=== PATIENT | female | born 1985 | race Caucasian/White ===

== ENCOUNTER 2019-07-23 21:00 | Emergency (ER) | payer SELFPAY ==
[2019-07-23 21:23] VITALS: BP 128/81
[2019-07-23] MEDS ORDERED: HYDROCODONE/ACETAMINOPHEN 5-325 MG (6 TAB/ER DISP) PO PRN (22:29)
[2019-07-23] MEDS ORDERED: IBUPROFEN 800 MG TABLET PO ONE (22:29)
[2019-07-23] MEDS ORDERED: PENICILLIN V POTASSIUM 500 MG TABLET PO ONE (22:29)
--- NOTE | 2019-07-23 22:30 | ER Document Report ---
HPI - HPI Patient complains to provider of: Right side facial swelling Time Seen by Provider: 07/23/19 22:07 Onset: Other - 3 weeks Onset/Duration: Persistent Quality of pain: Achy Pain Level: 2 Context: Patient presents with 3-week history of right-sided facial swelling and pain. Patient denies any fever. Patient does complain of some right ear pain as well. No drainage from the ear. Associated Symptoms: Earache. denies: Fever, Nausea, Vomiting Exacerbated by: Denies Relieved by: Denies Similar symptoms previously: No Recently seen / treated by doctor: No - ROS ROS below otherwise negative: Yes Systems Reviewed and Negative: Yes All other systems reviewed and negative - CONSTITUTIONAL Constitutional: DENIES: Fever, Chills - EENT EENT: REPORTS: Ear Pain Notes: Right side facial pain - RESPIRATORY Respiratory: DENIES: Coughing - GASTROINTESTINAL Gastrointestinal: DENIES: Nausea, Patient vomiting - REPRODUCTIVE Reproductive: DENIES: : - DERM Skin Color: Normal Skin Problems: None Past Medical History - General Information source: Patient - Social History Smoking Status: Never Smoker Frequency of alcohol use: None Drug Abuse: None Lives with: Family Family History: Reviewed & Not Pertinent, Arthritis, CAD, Hyperlipidemia, Hypertension, Malignancy, Other - Endometriosis Patient has suicidal ideation: No Patient has homicidal ideation: No - Medical History Medical History: Negative Neurological Medical History: Renal/ Medical History: Denies: Hx Peritoneal Dialysis GI Medical History: Reports: Hx Gastroesophageal Reflux Disease. Denies: Hx Pancreatitis Past Surgical History: Reports: Hx Section - x 2, Hx Hysterectomy - partial, Hx Oral Surgery - wisdom teethComment Only: Hx Cardiac Surgery - x2 - Immunizations Hx Diphtheria, Pertussis, Tetanus Vaccination: Yes Vertical Provider Document - CONSTITUTIONAL Agree With Documented VS: Yes Exam Limitations: No Limitations General Appearance: WD/WN, No Apparent Distress - INFECTION CONTROL TRAVEL OUTSIDE OF THE [place] IN LAST 30 DAYS: No - HEENT HEENT: Atraumatic, Normocephalic Mouth Diagram: 1 - tenderness, no abscess, no trismus - NECK Neck: Normal Inspection, Supple. negative: Lymphadenopathy-Left, Lymphadenopathy-Right - RESPIRATORY Respiratory: Breath Sounds Normal, No Respiratory Distress - CARDIOVASCULAR Cardiovascular: Regular Rate, Regular Rhythm, No Murmur - BACK Back: Normal Inspection - MUSCULOSKELETAL/EXTREMETIES Musculoskeletal/Extremeties: MAEW - NEURO Level of Consciousness: Awake, Alert, Appropriate Motor/Sensory: No Motor Deficit - DERM Integumentary: Warm, Dry, No Rash Course - Vital Signs Vital signs: Temp Pulse Resp BP Pulse Ox 97.9 F 66 16 128/81 H 100 07/23/19 21:18 07/23/19 21:18 07/23/19 21:18 07/23/19 21:18 07/23/19 21:18 Discharge - Discharge Clinical Impression: Pain, dental Condition: Stable Disposition: HOME, SELF-CARE Instructions: Oral Narcotic Medication ([facility]), Penicillin V K ([facility]), Toothache ( [facility]) Additional Instructions: Return immediately for any new or worsening symptoms Followup with your primary care provider, call tomorrow to make a followup appointment Follow-up with a dental care provider, call tomorrow for an appointment Prescriptions: Naproxen [Naprosyn 250 Nmg Tablet] 1 tab PO BID #14 tablet Penicillin V Potassium [Penicillin Vk 500 mg Tablet] 500 mg PO BID #20 tablet Referrals: [facility] [Provider Group] - Follow up in 3-5 days
== END 2019-07-23 22:38 | disposition home or self-care (01) ==
LOC: ER 21:00
DX: K08.89 Other specified disorders of teeth and supporting structures (principal); R22.0 Localized swelling, mass and lump, head; R51 Headache
CPT/HCPCS: 99283

== ENCOUNTER 2019-11-07 20:31 | Emergency (ER) | payer SELFPAY ==
[2019-11-07] MEDS ORDERED: IBUPROFEN 800 MG TABLET PO ONE (21:10)
--- NOTE | 2019-11-07 21:12 | ER Document Report ---
ED Medical Screen (RME) - General Chief Complaint: Jaw Pain Stated Complaint: JAW PAIN Time Seen by Provider: 11/07/19 21:04 Mode of Arrival: Ambulatory Information source: Patient Notes: 34-year-old female presents to the emergency department with complaints of right-sided jaw pain for the past 3 to 4 months. Reports she was evaluated here and advised to follow-up with a dentist. She did follow-up with the dentist. Patient reports that she had x-rays done and her teeth were evaluated and they did not find anything. She reports it hurts whenever she chews and the right side of her jaw swells up. Denies trauma to the area. Denies fever vomiting diarrhea. I have greeted and performed a rapid initial assessment of this patient. A comprehensive ED assessment and evaluation of the patient, analysis of test results and completion of the medical decision making process will be conducted by additional ED providers. TRAVEL OUTSIDE OF THE [place] IN LAST 30 DAYS: No - Related Data Allergies/Adverse Reactions: cyclobenzaprine HCl [From [employer]] Adverse Reaction (Verified 10/30/15 13:15) Past Medical History Neurological Medical History: Renal/ Medical History: Denies: Hx Peritoneal Dialysis GI Medical History: Reports: Hx Gastroesophageal Reflux Disease. Denies: Hx Pancreatitis Past Surgical History: Reports: Hx Section - x 2, Hx Hysterectomy - partial, Hx Oral Surgery - wisdom teethComment Only: Hx Cardiac Surgery - x2 - Immunizations Hx Diphtheria, Pertussis, Tetanus Vaccination: Yes Physical Exam - Vital signs Vitals: Temp Pulse Resp BP Pulse Ox 98.7 F 78 16 130/89 H 100 11/07/19 20:48 11/07/19 20:48 11/07/19 20:48 11/07/19 20:48 11/07/19 20:48 Course - Vital Signs Vital signs: Temp Pulse Resp BP Pulse Ox 98.7 F 78 16 130/89 H 100 11/07/19 20:48 11/07/19 20:48 11/07/19 20:48 11/07/19 20:48 11/07/19 20:48
--- NOTE | 2019-11-07 22:18 | RADIOLOGY REPORT (SQ) ---
EXAM DESCRIPTION: XR MANDIBLE 4 OR MORE VIEWS COMPLETED DATE/TME: 11/07/2019 21:10 CLINICAL HISTORY: 34 years, Female, jaw pain COMPARISON: None. NUMBER OF VIEWS: 4 TECHNIQUE: 4 views of the mandible LIMITATIONS: None. FINDINGS: No radiographic evidence for fracture. The temporomandibular joints are intact bilaterally. No lytic or blastic change. The paranasal sinuses and mastoid air cells are well aerated. IMPRESSION: Unremarkable exam copyright 2010 [employer]- All Rights Reserved
--- NOTE | 2019-11-08 02:26 | ER Document Report ---
ED Oral Problem - General Chief Complaint: Jaw Pain Stated Complaint: JAW PAIN Time Seen by Provider: 11/07/19 21:04 Mode of Arrival: Ambulatory Notes: 34-year-old woman presents to the emergency department with a complaint of discomfort and pain in her right jaw area. She states that whenever she chews or tries to eat she gets a pain in the right lateral jaw area. States that this is been going on for 3 months and she had been seen in the emergency department on one prior occasion. She was referred to see a dentist and after the dental evaluation no source of her pain could be identified. Patient states that whenever she tries to eat anything she gets a sensation of feeling like she is eating something sour and then the pain begins. TRAVEL OUTSIDE OF THE [place] IN LAST 30 DAYS: No - Related Data Allergies/Adverse Reactions: cyclobenzaprine HCl [From Flexeril] Adverse Reaction (Verified 10/30/15 13:15) Past Medical History - General Information source: Patient - Rhonchi - Social History Smoking Status: Former Smoker Family History: Reviewed & Not Pertinent, Arthritis, CAD, Hyperlipidemia, Hypertension, Malignancy, Other - Endometriosis Patient has suicidal ideation: No Patient has homicidal ideation: No Neurological Medical History: Renal/ Medical History: Denies: Hx Peritoneal Dialysis GI Medical History: Reports: Hx Gastroesophageal Reflux Disease. Denies: Hx Pancreatitis Past Surgical History: Reports: Hx Section - x 2, Hx Hysterectomy - partial, Hx Oral Surgery - wisdom teethComment Only: Hx Cardiac Surgery - x2 - Immunizations Hx Diphtheria, Pertussis, Tetanus Vaccination: Yes Review of Systems - Review of Systems Notes: Constitutional: Negative for fever. HENT: + Right jaw pain. Eyes: Negative for visual changes. Cardiovascular: Negative for chest pain. Respiratory: Negative for shortness of breath. Gastrointestinal: Negative for abdominal pain, vomiting or diarrhea. Genitourinary: Negative for dysuria. Musculoskeletal: Negative for back pain. Skin: Negative for rash. Neurological: Negative for headaches, weakness or numbness. 10 point ROS negative except as marked above and in HPI. Physical Exam - Vital signs Vitals: Temp Pulse Resp BP Pulse Ox 98.7 F 78 16 130/89 H 100 11/07/19 20:48 11/07/19 20:48 11/07/19 20:48 11/07/19 20:48 11/07/19 20:48 - Notes Notes: PHYSICAL EXAMINATION: Physical Exam: General: Well-nourished well-developed woman in no acute distress HEENT: NC/AT, pupils equal round and reactive to light, MM moist,nares clear, tenderness in the right lateral jaw and along the right sternocleidomastoid muscle area. Neck: supple, no adenopathy, no masses. Lungs: clear, no wheezing, no rales no rhonchi CVS: Regular rate and rhythm no murmur gallop or rub Abdomen: Soft active nontender, no masses, no hepatosplenomegaly Ext: No edema clubbing or cyanosis. Neuro: Alert and responsive, moving all 4 extremities on command, cranial nerves intact. Skin: Intact no open lesions, no rash PSYCH: Normal mood, normal affect. Course - Re-evaluation Re-evalutation: 11/08/19 02:22 Patient was given a challenge of orange juice and she complaining of a sore onset of symptoms with pain and discomfort in the right lateral jaw. There is no obvious swelling at that time. However, given her complaint the possibility of a salivary gland stone or salivary gland infection is at the top of the list. I will offer her a course of antibiotics and analgesic medications with referral to ENT. I discussed this plan with the patient and she is in agreement. At all - Vital Signs Vital signs: Temp Pulse Resp BP Pulse Ox 97.9 F 72 18 122/79 100 11/08/19 01:10 11/08/19 01:10 11/08/19 01:10 11/08/19 01:10 11/08/19 01:10 Discharge - Discharge Clinical Impression: Pain in salivary gland region Condition: Good Disposition: HOME, SELF-CARE Instructions: Acute Parotid Gland Swelling ([facility]) Additional Instructions: Pain accompanied by visible swelling of the gland on the side of your face or under your jaws until till sign of a salivary gland infection and possibly a stone. We are treating you for the possibility of infection and referring you to an ear nose and throat doctor for the possibility of a stone. 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 Referrals: JORDAN DAVIS, [ASSOCIATE] - Follow up as needed
[2019-11-08] MEDS ORDERED: AMOXICILLIN TRIHYDRATE 500 MG CAPSULE PO ONE (02:37)
[2019-11-08] MEDS ORDERED: NAPROXEN 250 MG TABLET PO ONE (02:39)
[2019-11-08 03:13] VITALS: BP 118/75
== END 2019-11-08 02:50 | disposition home or self-care (01) ==
LOC: ER 20:31
DX: K11.8 Other diseases of salivary glands (principal); R68.84 Jaw pain; Z87.891 Personal history of nicotine dependence
CPT/HCPCS: 70110; 99283